=== PATIENT | male | born 1985 | race Caucasian/White ===

== ENCOUNTER 2017-05-20 18:26 | Emergency (ER) | payer SELFPAY ==
[2017-05-20 18:32] VITALS: TEMP 98.4
[2017-05-20] MEDS ORDERED: CHLORDIAZEPOXIDE 25MG PREPK#6 BTL TAKEHOME ONE ×2 (18:36→18:42)
[2017-05-20] MEDS ORDERED: LORazepam 1 MG TAB ONE (18:36)
[2017-05-20] MEDS ORDERED: LORazepam 1 MG TAB PO ONE (18:37)
[2017-05-20] MEDS ORDERED: NS 1,000 ML IV ONE (18:40)
[2017-05-20] MEDS ORDERED: LORazepam 2 MG/ML INJ IVP ONE (18:40)
[2017-05-20] MEDS ORDERED: LORazepam 2 MG/ML INJ ONE (18:40)
--- NOTE | 2017-05-20 19:04 | EDPHY ---
H & P Time Seen by Provider: 05/20/17 18:33 HPI/ROS: CHIEF COMPLAINT: Alcohol withdrawal HISTORY OF PRESENT ILLNESS: 32-year-old male presents to the emergency department by private vehicle with acute alcohol withdrawal. The patient has been drinking heavily over last several weeks. His last drink of alcohol was not o'clock this morning. He went to the [facility] on his own and then this evening around 5:00 p.m. he was beginning to feel very tremulous and shaky. The staff at the [facility] sent him to the emergency department for Librium and evaluation. Patient has no pain in his chest. He has no abdominal pain or reports of vomiting. He has had alcohol withdrawal related seizure in the past. He occasionally smokes marijuana. Denies any other substance abuse. He is not suicidal homicidal. He feels nauseous although no vomiting. REVIEW OF SYSTEMS: Constitutional: No fever, no chills. Eyes: No double or blurry vision. ENT: No sore throat. Respiratory: No cough, no shortness of breath. Cardiac: No chest pain. Gastrointestinal: No abdominal pain, vomiting or diarrhea. Genitourinary: No dysuria. Musculoskeletal: No neck or back pain. Skin: No rashes. Neurological: No headache. Past Medical/Surgical History: Alcoholism Social History: Homeless from [place] Smoking Status: Current every day smoker Physical Exam: General Appearance: Alert, moderate distress. Tremulous. Eyes: Pupils equal and round. Extraocular motions are all intact. ENT: Mouth: Mucous membranes appears dry Respiratory: No wheezing, rhonchi, or rales, lungs are clear to auscultation. Cardiovascular: Regular rate and rhythm. Gastrointestinal: Abdomen is soft and nontender, no masses, no rebound or guarding, bowel sounds normal. Neurological: Alert and oriented x 3, cranial nerves II through XII grossly intact Skin: Warm and dry, no rashes. Musculoskeletal: Nontender to palpate along the cervical, thoracic or lumbar spine. Neck is supple. Extremities: Full range of motion and no peripheral edema. Psychiatric: Patient is oriented X 3, there is no agitation. Constitutional: Initial Vital Signs Temperature (C) 36.9 C 05/20/17 18:29 Heart Rate 103 H 05/20/17 18:29 Respiratory Rate 20 05/20/17 18:29 Blood Pressure 154/94 H 05/20/17 18:29 O2 Sat (%) 97 05/20/17 18:29 O2 Delivery Mode Room Air Allergies/Adverse Reactions: No Known Allergies Allergy (Unverified 05/20/17 18:29) Home Medications: Medication Instructions Recorded NK [No Known Home Meds] 05/20/17 Medical Decision Making ED Course/Re-evaluation: 32-year-old male presents to the emergency department with acute alcohol withdrawal. The patient is tremulous. He is tachycardic with a heart rate of 115. He had an IV established and was given IV normal saline as well as 2 mg of Ativan IV. When he is feeling better and no longer tremulous, he will be discharged to the [facility] with a take-home pack of Librium. Patient was re-evaluated and is feeling much better. He is no longer tremulous. Heart rate is 95. He feels comfortable being discharged to the [facility]. Differential Diagnosis: Including but not limited to alcohol withdrawal, delirium, dehydration, electrolyte abnormality - Data Points Medications Given: Discontinued Medications Chlordiazepoxide (Librium 25 Mg Prepack#6) 1 btl TAKEHOME EDNOW ONE Stop: 05/20/17 18:43 Last Admin: 05/20/17 18:49 Dose: 1 btl Sodium Chloride (Ns) 1,000 mls @ 0 mls/hr IV ONCE ONE PRN Reason: Wide Open Stop: 05/20/17 18:41 Last Admin: 05/20/17 18:46 Dose: 1,000 mls Lorazepam (Ativan) 2 mg PO EDNOW ONE Stop: 05/20/17 18:38 Last Admin: 05/20/17 19:24 Dose: Not Given Lorazepam (Ativan Injection) 2 mg IVP EDNOW ONE Stop: 05/20/17 18:41 Last Admin: 05/20/17 18:45 Dose: 2 mg Departure - Departure Disposition: Home, Routine, Self-Care Clinical Impression: Alcohol withdrawal Qualifiers: Complication of substance-induced condition: uncomplicated Qualified Code(s): F10.230 - Alcohol dependence with withdrawal, uncomplicated Condition: Good Instructions: Alcohol Withdrawal (ED) Additional Instructions: Go directly to the [facility]. Your given a take-home pack of Librium to take with you. Given this to the staff when you arrive. Referrals: [facility] [Outside] - As per Instructions
[2017-05-20 19:20] VITALS: RESP 19
[2017-05-20 19:30] VITALS: BP 130/86; PULSE 91; O2SAT 94
== END 2017-05-20 19:45 | disposition home or self-care (01) ==
DX: F10.230 Alcohol dependence with withdrawal, uncomplicated (principal); F17.200 Nicotine dependence, unspecified, uncomplicated
CPT/HCPCS: 96374; J2060

== ENCOUNTER 2017-06-21 03:25 | Inpatient (IN) | payer MEDICAID ==
[2017-06-21] MEDS ORDERED: NS 1,000 ML IV ONE ×3 (03:29→05:57)
[2017-06-21] MEDS ORDERED: IPRATROPIUM/ALBUTEROL 3 ML DEYVIAL IH ONE (03:30)
--- NOTE | 2017-06-21 03:33 | EDPHY ---
H & P HPI/ROS: HPI CHIEF COMPLAINT: Shortness of breath, with white yellow sputum HISTORY OF PRESENT ILLNESS: Patient is a 32-year-old male, homeless, residing at a local homeless snf he reports to me for the past 2 weeks he has been worsening shortness of breath with cough with productive sputum white and yellow. The cough got worse tonight. Patient states that when he takes deep breath in he has left-sided pleuritic pain in his left lung. Denies trauma. Denies vomiting or diarrhea. Does report he was drinking alcohol this evening last drink at 8:30 p.m.. Denies diarrhea. Denies fever. Past Medical History: History of alcoholism daily alcohol use up to 24 beers, tobacco abuse. "IA in [place]" denies having stents. Past Surgical History: No surgical history Social History: Homeless, daily alcohol use, tobacco abuse. Family History: Noncontributory ROS REVIEW OF SYSTEMS: A comprehensive 10 point review of systems is otherwise negative aside from elements mentioned in the history of present illness. Exam Constitutional triage nursing summary reviewed, vital signs reviewed, awake/ alert. Vital signs noted oxygen saturation 88% on room air, tachycardic to 110 Eyes normal conjunctivae and sclera, EOMI, PERRLA. HENT normal inspection, atraumatic, moist mucus membranes, no epistaxis, neck supple/ no meningismus, no raccoon eyes. Respiratory decreased breath sounds bilaterally, wheezing throughout lung melvin, crackles at the left base. Cardiovascular tachycardic, regular rhythm, no murmur, no edema, distal pulses normal. Gastrointestinal soft, non-tender, no rebound, no guarding, normal bowel sounds, no distension, no pulsatile mass. Genitourinary no CVA tenderness. Musculoskeletal no midline vertebral tenderness, full range of motion, no calf swelling, no tenderness of extremities, no meningismus, good pulses, neurovascularly intact. Skin pink, warm, & dry, no rash, skin atraumatic. Neurologic awake, alert and oriented x 3, AAOx3, moves all 4 extremities equally, motor intact, sensory intact, CN II-XII intact, normal cerebellar, normal vision, normal speech. Psychiatric normal mood/affect. Heme/Lymph/Immune no lymphadenopathy. Differential Diagnosis: Includes but is not limited to in a particular order pneumonia, pulmonary embolism, pneumothorax, CHF, bronchitis, reactive airway disease Medical Decision Making: Plan for this patient IV establishment IV fluid bolus full quality assurance monitor, supplemental oxygen, DuoNeb breathing treatment, chest x- ray two view to rule pneumonia, blood work, and re-evaluate. Re-evaluation: ED x-ray chest two view shows haziness in the right lower lobe, additionally haziness on the left heart border concerning for pneumonia. Image interpreted by myself. CT chest angiogram no pulmonary embolism visualized. This does show a left lower lobe pneumonia. This patient be admitted to the hospitalist service for left lower lobe pneumonia, hypoxia and alcohol intoxication Patient blood cultures been pulled. Lactic acid is been pulled. IV Rocephin and Zithromax given. EKG interpretation by me on record in [facility] system. Impression time of EKG 3:52 a.m., sinus tachycardia rate of 100. LVH present. Early Repol pattern present. Spoke with the hospitalist service [id number]: Agrees to admit, Dr. Sun. Reason for admission tachycardia, hypoxia, acute alcohol intoxication and left lower lobe pneumonia. Source: Patient, EMS - Medical/Surgical History Hx Asthma: No Hx Chronic Respiratory Disease: No Hx Diabetes: No Hx Cardiac Disease: No Hx Renal Disease: No Hx Cirrhosis: No Hx Alcoholism: Yes Hx HIV/AIDS: No Hx Splenectomy or Spleen Trauma: No Other PMH: etoh - Social History Smoking Status: Current every day smoker Constitutional: Initial Vital Signs Temperature (C) 37.6 C 06/21/17 03:28 Heart Rate 101 H 06/21/17 03:28 Respiratory Rate 18 06/21/17 03:28 Blood Pressure 135/106 H 06/21/17 03:28 O2 Sat (%) 95 06/21/17 03:28 O2 Delivery Mode Nasal Cannula O2 (L/minute) 3 Allergies/Adverse Reactions: No Known Allergies Allergy (Unverified 05/20/17 18:29) Home Medications: Medication Instructions Recorded NK [No Known Home Meds] 05/20/17 Medical Decision Making - Data Points Laboratory Results: Laboratory Results 06/21/17 03:30 06/21/17 03:30 Medications Given: Chlordiazepoxide HCl (Librium) 50 mg PO TID JOSE E Stop: 12/18/17 15:59 Last Admin: 06/21/17 21:08 Dose: 50 mg Folic Acid (Folic Acid) 1 mg PO DAILY JOSE E Stop: 12/18/17 08:59 Last Admin: 06/21/17 08:07 Dose: 1 mg Thiamine HCl 500 mg/ Sodium (Chloride) 255 mls @ 255 mls/hr IV DAILY JOSE E Stop: 06/24/17 08:59 Last Admin: 06/21/17 08:12 Dose: 255 mls Potassium Chloride/Dextrose/Sod Cl (D5w 1/2 Ns W/ 20 Kcl/L) 1,000 mls @ 125 mls /hr IV CONT JOSE E Stop: 12/18/17 10:59 Last Admin: 06/21/17 22:05 Dose: 1,000 mls Lorazepam (Ativan Injection) 0 mg IVP Q1H PRN; Protocol PRN Reason: Alcohol Withdrawal w/IV access Stop: 12/18/17 05:43 Last Admin: 06/21/17 22:05 Dose: 2 mg Multivitamins (Tab-A-Fritz) 1 each PO DAILY JOSE E Stop: 12/18/17 08:59 Last Admin: 06/21/17 08:07 Dose: 1 each Discontinued Medications Albuterol/Ipratropium (Duoneb) 3 ml IH EDNOW ONE Stop: 06/21/17 03:31 Last Admin: 06/21/17 03:45 Dose: 3 ml Chlordiazepoxide HCl (Librium) 25 mg PO TID PRN PRN Reason: Anxiety, Able to Take PO Stop: 12/18/17 05:42 Last Admin: 06/21/17 08:07 Dose: 25 mg Chlordiazepoxide HCl (Librium) 25 mg PO ONCE ONE Stop: 06/21/17 10:46 Last Admin: 06/21/17 11:03 Dose: 25 mg Diazepam (Valium) 5 mg IVP ONCE ONE Stop: 06/21/17 14:09 Last Admin: 06/21/17 14:10 Dose: 5 mg Diazepam (Valium) 5 mg IVP ONCE ONE Stop: 06/21/17 14:35 Last Admin: 06/21/17 14:56 Dose: 5 mg Sodium Chloride (Ns) 1,000 mls @ 0 mls/hr IV EDNOW ONE; Wide Open PRN Reason: Protocol Stop: 06/21/17 03:30 Last Admin: 06/21/17 03:44 Dose: 1,000 mls Azithromycin 500 mg/ Dextrose 255 mls @ 255 mls/hr IV EDNOW ONE PRN Reason: Protocol Stop: 06/21/17 04:58 Last Admin: 06/21/17 04:53 Dose: 255 mls Ceftriaxone Sodium 1 gm/ (Sterile Water) 10 mls @ 150 mls/hr IV EDNOW ONE PRN Reason: Protocol Stop: 06/21/17 04:02 Last Admin: 06/21/17 04:52 Dose: 10 mls Sodium Chloride (Ns) 1,000 mls @ 0 mls/hr IV ONCE ONE PRN Reason: Wide Open Stop: 06/21/17 04:00 Last Admin: 06/21/17 04:08 Dose: 1,000 mls Sodium Chloride (Ns) 1,000 mls @ 0 mls/hr IV ONCE ONE PRN Reason: Wide Open Stop: 06/21/17 05:58 Last Admin: 06/21/17 06:59 Dose: 1,000 mls Magnesium Sulfate (Magnesium Sulf 2 Gm (Premix)) 50 mls @ 50 mls/hr IV ONCE ONE Stop: 06/21/17 11:59 Last Admin: 06/21/17 11:02 Dose: 50 mls Lorazepam (Ativan Injection) 1 mg IVP EDNOW ONE Stop: 06/21/17 05:37 Last Admin: 06/21/17 06:59 Dose: Not Given Lorazepam (Ativan Injection) 2 mg IVP ONCE ONE Stop: 06/21/17 05:43 Last Admin: 06/21/17 05:44 Dose: 2 mg Lorazepam (Ativan Injection) 2 mg IVP ONCE ONE Stop: 06/21/17 11:59 Last Admin: 06/21/17 12:05 Dose: 2 mg Lorazepam (Ativan Injection) 2 mg IVP ONCE ONE Stop: 06/21/17 13:46 Last Admin: 06/21/17 13:30 Dose: 2 mg Departure - Departure Disposition: [facility] Clinical Impression: Hypoxia Pneumonia Qualifiers: Pneumonia type: due to unspecified organism Laterality: left Lung location: lower lobe of lung Qualified Code(s): J18.1 - Lobar pneumonia, unspecified organism Alcohol intoxication Qualifiers: Complication of substance-induced condition: uncomplicated Qualified Code(s): F10.920 - Alcohol use, unspecified with intoxication, uncomplicated Alcohol withdrawal Qualifiers: Complication of substance-induced condition: uncomplicated Qualified Code(s): F10.230 - Alcohol dependence with withdrawal, uncomplicated Condition: Fair
[2017-06-21 03:43] LABS: PLATELET COUNT 85 10^3/uL (150-400)
[2017-06-21 03:52] LABS: INR 0.87 (0.83-1.16)
--- NOTE | 2017-06-21 03:54 | CPEKG ---
Heart Rate: 100 RR Interval: 600 P-R Interval: 136 QRSD Interval: 96 QT Interval: 344 QTC Interval: 444 P Marshall: 62 QRS Marshall: 73 T Wave Marshall: 4 EKG Severity - ABNORMAL ECG - EKG Impression: SINUS TACHYCARDIA EKG Impression: PROBABLE LEFT VENTRICULAR HYPERTROPHY EKG Impression: ST ELEV, PROBABLE NORMAL EARLY REPOL PATTERN Electronically Signed By: John Flores 21-Jun-2017 07:56:38
[2017-06-21 03:55] LABS: CREATINE KINASE 359 IU/L (0-224)
[2017-06-21] MEDS ORDERED: cefTRIAXone 1 GM in STERILE WATER INJ 10 ML IV ONE (03:59)
[2017-06-21] MEDS ORDERED: AZITHROMYCIN IV 500 MG in D5W 250 ML IV ONE (03:59)
[2017-06-21] MEDS ORDERED: IOPAMIDOL (ISOVUE 370) 100 ML BTL IV ONE (04:28)
[2017-06-21] MEDS ORDERED: ACETAMINOPHEN 325 MG TAB PO PRN (05:09)
[2017-06-21] MEDS ORDERED: ONDANSETRON 4 MG/2 ML VIAL IVP PRN (05:09)
[2017-06-21] MEDS ORDERED: ONDANSETRON DISINTEGRATING 4 MG TAB PO PRN (05:09)
[2017-06-21] MEDS ORDERED: ALBUTEROL 3 ML DEYVIAL IH PRN (05:09)
[2017-06-21] MEDS ORDERED: LORazepam 2 MG/ML INJ IVP ONE ×4 (05:36→13:45)
[2017-06-21] MEDS ORDERED: chlordiazePOXIDE 25 MG CAP PO PRN (05:43)
--- NOTE | 2017-06-21 05:51 | PDGENHP ---
History and Physical - Chief Complaint Chest pain - History of Present Illness 32 yo M w/ hx of heavy ETOH abuse presents with cough, shortness of breath, and chest pain. Patient first noticed a cough about a month ago. This persisted until last night when he developed left sided pleuritic chest pain, fever, chills, and worsening shortness of breath. Work-up notable for leukocytosis and CTA c/w LLL pneumonia. He drinks 2 liters of vodka and 2-3 40 oz malt liquors daily. He has a history of severe withdrawal with prior ETOH w/d seizures. His last drink was at 9 PM yesterday evening and he is already showing signs of significant ETOH withdrawal despite BAL of 385 on arrival in the ED. History Information - Allergies/Home Medication List Allergies/Adverse Reactions: No Known Allergies Allergy (Unverified 05/20/17 18:29) Home Medications: NK [No Known Home Meds] 05/20/17 [Last Taken Unknown] I have personally reviewed and updated: family history, medical history - Past Medical History Additional medical history: ETOH abuse w/ hx of w/d and ETOH w/d seizures - Surgical History Reports: no pertinent surgical hx - Family History Positive for: cancer, CAD Additional family history: Cirrhosis - Social History Smoking Status: Current every day smoker Alcohol Use: Heavy Review of Systems Review of Systems: ROS: 10pt was reviewed & negative except for what was stated in HPI & below Physical Exam Physical Exam: Temp Pulse Resp BP Pulse Ox 37.6 C 108 H 18 132/84 H 95 06/21/17 03:28 06/21/17 05:42 06/21/17 05:42 06/21/17 05:42 06/21/17 05:42 O2 (L/minute) 3 Constitutional: uncomfortable, other (Tremulous, anxious) Eyes: PERRL, EOMI Ears, Nose, Mouth, Throat: moist mucous membranes, no oral mucosal ulcers Cardiovascular: no murmur, rub, or gallop, tachycardia Respiratory: reduced air movement, inspiratory crackles (LLL), other ( Significant splinting) Gastrointestinal: normoactive bowel sounds, soft, non-tender abdomen Skin: warm, normal color Musculoskeletal: full muscle strength, no muscle tenderness Neurologic: AAOx3, CN II-XII Intact Psychiatric: interacting appropriately, anxious Lab Data & Imaging Review 06/21/17 03:30 06/21/17 03:30 WBC 12.26 10^3/uL (3.80-9.50) H 06/21/17 03:30 RBC 4.94 10^6/uL (4.40-6.38) 06/21/17 03:30 Hgb 14.9 g/dL (13.7-17.5) 06/21/17 03:30 Hct 43.0 % (40.0-51.0) 06/21/17 03:30 MCV 87.0 fL (81.5-99.8) 06/21/17 03:30 MCH 30.2 pg (27.9-34.1) 06/21/17 03:30 MCHC 34.7 g/dL (32.4-36.7) 06/21/17 03:30 RDW 18.4 % (11.5-15.2) H 06/21/17 03:30 Plt Count 85 10^3/uL (150-400) L 06/21/17 03:30 MPV 9.5 fL (8.7-11.7) 06/21/17 03:30 Neut % (Auto) 60.4 % (39.3-74.2) 06/21/17 03:30 Lymph % (Auto) 33.7 % (15.0-45.0) 06/21/17 03:30 Dyer % (Auto) 2.9 % (4.5-13.0) L 06/21/17 03:30 Eos % (Auto) 1.9 % (0.6-7.6) 06/21/17 03:30 Baso % (Auto) 0.7 % (0.3-1.7) 06/21/17 03:30 Nucleat RBC Rel Count 0.0 % (0.0-0.2) 06/21/17 03:30 Absolute Neuts (auto) 7.41 10^3/uL (1.70-6.50) H 06/21/17 03:30 Absolute Lymphs (auto) 4.13 10^3/uL (1.00-3.00) H 06/21/17 03:30 Absolute Monos (auto) 0.35 10^3/uL (0.30-0.80) 06/21/17 03:30 Absolute Eos (auto) 0.23 10^3/uL (0.03-0.40) 06/21/17 03:30 Absolute Basos (auto) 0.09 10^3/uL (0.02-0.10) 06/21/17 03:30 Absolute Nucleated RBC 0.00 10^3/uL (0-0.01) 06/21/17 03:30 Immature Gran % 0.4 % (0.0-1.1) 06/21/17 03:30 Immature Gran # 0.05 10^3/uL (0.00-0.10) 06/21/17 03:30 PT 12.0 SEC (12.0-15.0) 06/21/17 03:30 INR 0.87 (0.83-1.16) 06/21/17 03:30 APTT 22.2 SEC (23.0-38.0) L 06/21/17 03:30 D-Dimer 2.29 ug/mLFEU (0.00-0.50) H 06/21/17 03:30 VBG Lactic Acid 2.0 mmol/L (0.7-2.1) 06/21/17 05:16 Sodium 147 mEq/L (135-145) H 06/21/17 03:30 Potassium 4.0 mEq/L (3.5-5.2) 06/21/17 03:30 Chloride 104 mEq/L (97-110) 06/21/17 03:30 Carbon Dioxide 21 mEq/l (22-31) L 06/21/17 03:30 Anion Gap 22 mEq/L (8-16) H 06/21/17 03:30 BUN 10 mg/dL (7-23) 06/21/17 03:30 Creatinine 0.6 mg/dL (0.7-1.3) L 06/21/17 03:30 Estimated GFR > 60 06/21/17 03:30 Glucose 123 mg/dL (70-100) H 06/21/17 03:30 Calcium 8.9 mg/dL (8.5-10.4) 06/21/17 03:30 Magnesium 1.5 mg/dL (1.6-2.3) L 06/21/17 03:30 Total Bilirubin 0.4 mg/dL (0.1-1.4) 06/21/17 03:30 Conjugated Bilirubin 0.3 mg/dL (0.0-0.5) 06/21/17 03:30 Unconjugated Bilirubin 0.1 mg/dL (0.0-1.1) 06/21/17 03:30 AST 237 IU/L (17-59) H 06/21/17 03:30 ALT 120 IU/L (21-72) H 06/21/17 03:30 Alkaline Phosphatase 128 IU/L (38-126) H 06/21/17 03:30 Creatine Kinase 359 IU/L (0-224) H 06/21/17 03:30 CK-MB (CK-2) Fraction 3.62 ng/mL (0.00-3.19) H 06/21/17 03:30 CK-MB (CK-2) % 1.0 % (0.0-4.0) 06/21/17 03:30 Creatine Kinase Interp NEGATIVE (NEGATIVE) 06/21/17 03:30 Troponin I < 0.012 ng/mL (0.000-0.034) 06/21/17 03:30 NT-Pro-B Natriuret Pep 21 pg/mL (0-125) 06/21/17 03:30 Total Protein 8.4 g/dL (6.3-8.2) H 06/21/17 03:30 Albumin 4.8 g/dL (3.5-5.0) 06/21/17 03:30 Lipase 211 IU/L (23-300) 06/21/17 03:30 Urine Opiates Screen NEGATIVE (NEGATIVE) 06/21/17 04:48 Urine Barbiturates NEGATIVE (NEGATIVE) 06/21/17 04:48 Ur Phencyclidine Scrn NEGATIVE (NEGATIVE) 06/21/17 04:48 Ur Amphetamine Screen NEGATIVE (NEGATIVE) 06/21/17 04:48 U Benzodiazepines Scrn NEGATIVE (NEGATIVE) 06/21/17 04:48 Urine Cocaine Screen NEGATIVE (NEGATIVE) 06/21/17 04:48 U Marijuana (THC) Screen NON-NEGATIVE (NEGATIVE) H 06/21/17 04:48 Ethyl Alcohol 385 mg/dL (0-10) H 06/21/17 03:30 Imaging Review: CTA Chest Preliminary: Signs and Symptoms: ^Shortness of breath, pleuritic pain, positive D-dimer Technique: Routine axial imaging of the chest was performed. Findings: No PE. Aorta nl LLL pneumonia ? fatty liver Called to ER @ 0505 hrs Visualized and Interpreted EKG results: Yes EKG Interpretation: Positive for: normal sinsus rhythm, other (Sinus tach, early repol anterior leads) Assessment & Plan Assessment: 32 yo M w/ hx of heavy ETOH abuse presents with pneumonia and ETOH w/d. Plan: 1. Sepsis 2/2 LLL Pneumonia - 2/4 SIRS (WBC, HR) present on admission. Cough present for 1 month and then 1 day of pleuritic chest pain, fever, chills, and worsening SOB. CTA chest negative for PE and pneumothorax. Possible this is related to aspiration in setting of heavy ETOH use. - CTX/Azithro for CAP coverage, if worsening would add anaerobic coverage - Blood cultures ordered - S/p 2L IVF in ED, will give additional liter now 2. ETOH abuse w/ acute withdrawal - Patient drinks 2 L vodka and 2-3 40 oz malt liquors daily. His last drink was at 9 PM the evening prior to admission and he is already displaying signs of significant withdrawal despite BAL of 350 on arrival. He reports various prior episodes of severe withdrawal including ETOH w /d seizures. - Ativan 2 mg IV + Librium 25 mg PO now, continue Librium scheduled TID - Admit to ICU for close monitoring and ICU level CIWA protocol - Seizure precautions - Thiamine, folate, MVI - Case management consult placed 3. Abnormal LFTs - Suspect mild alcoholic hepatitis. DF negligible so no indication for steroids. Trend LFTs. 4. Thrombocytopenia - Plts 85 on admission. This is most likely due to direct toxic effect of ETOH on bone marrow as patient does not display clear evidence of cirrhosis at this time; may also have some contribution from sepsis. Would avoid blood thinners as able. Diet - Regular Code - Full Ppx - SCDs Dispo - Admit to ICU under observation status for now
[2017-06-21] MEDS: LORazepam 2 MG/ML INJ IVP PRN ×16 (06:58→23:06)
[2017-06-21] MEDS: FOLIC ACID 1 MG TAB PO SCH (08:07)
[2017-06-21] MEDS: MULTIVITAMINS 1 EACH TAB PO SCH (08:07)
[2017-06-21] MEDS: THIAMINE HCL 500 MG in NS 250 ML IV SCH (08:12)
[2017-06-21] MEDS ORDERED: chlordiazePOXIDE 25 MG CAP PO ONE (10:45)
[2017-06-21] MEDS ORDERED: MAGNESIUM SULF 2 GM/WATER 50 ML IV ONE (11:00)
[2017-06-21] MEDS: D5W 1/2 NS W/ 20 KCl/L 1,000 ML IV SCH ×2 (11:02→22:05)
--- NOTE | 2017-06-21 12:26 | ASMTCASEMG ---
Living Arrangements What is your living Answers: Alone arrangement? Who do you live with? Type Of Residence What kind of residence do Answers: Homeless you live in? Discharge Plan Comments Coordination Status Comments Notes: Pt is a 32 y/o man admitted for chest pain. Pt is withdrawing from ETOH. Pt has a hx of ETOH seizures. CM attempted to meet w/ pt for ETOH education but pt was unable to rouse. Pt will most likely d/c independent when medically stable. CM available for d/c needs. Plan: Independent Date Signed: 06/21/2017 12:26 PM Electronically Signed By:YELENA Branch
--- NOTE | 2017-06-21 13:57 | HOSPPROG ---
Hospitalist Progress Note Assessment/Plan: Patient seen and examined Continue aggressive alcohol withdrawal treatment and antibiotics for pneumonia Objective: Vital Signs Temp Pulse Resp BP Pulse Ox 38.2 C 99 19 111/64 96 06/21/17 12:00 06/21/17 13:00 06/21/17 13:00 06/21/17 13:00 06/21/17 13:00 06/20/17 06/21/17 06/22/17 05:59 05:59 05:59 Intake Total 2250 Output Total 650 Balance 1600 PT 12.0 SEC (12.0-15.0) 06/21/17 03:30 INR 0.87 (0.83-1.16) 06/21/17 03:30 ICD10 Worksheet Patient Problems: Problems Problem Status Onset Alcohol intoxication Acute Hypoxia Acute Pneumonia Acute
[2017-06-21] MEDS ORDERED: DIAZEPAM 10 MG/2 ML SYR IVP ONE ×2 (14:08→14:34)
[2017-06-21] MEDS ORDERED: DIAZEPAM 10 MG/2 ML SYR ONE (14:10)
--- NOTE | 2017-06-21 14:42 | GCON ---
[f rep st] CONSULTATION DATE OF CONSULTATION: 06/21/2017 REFERRING PHYSICIAN: Willy Bernardo MD PULMONARY/CRITICAL CARE CONSULTATION REASON FOR REFERRAL: Evaluation and management of pneumonia and alcohol withdrawal. HISTORY: The patient is a 32-year-old male with a history of heavy alcohol use , who presented to the hospital. He noted a cough about a month ago. This persisted and then became a bit worse last night with the onset of some left pleuritic chest pain, fevers, and chills as well as worsening shortness of breath. He was admitted to the hospital for probable pneumonia following evaluation including a CT scan. At the time of admission, he was having signs of alcohol withdrawal despite having a BAL of 385 on arrival in the emergency department. Typically drinks several liters of vodka and a couple of malt liquors daily. He has had a history of seizures with prior withdrawal attempts. PAST MEDICAL HISTORY: Alcohol abuse with history of alcohol withdrawal seizures. MEDICATIONS: At the time of admission, none. ALLERGIES: None. SOCIAL HISTORY: The patient has a history of heavy daily alcohol use, as well as daily smoking. FAMILY HISTORY: Positive for coronary artery disease. REVIEW OF SYSTEMS: A 10-point review of systems adds nothing to the history of present illness. PHYSICAL EXAMINATION: GENERAL: The patient is awake and agitated with diaphoresis. He is complaining of significant tremors and agitation. VITAL SIGNS : His blood pressure is 121/74 with a heart rate of 110. He is afebrile. Oxygen saturations are 97% on 3 L. HEENT: Normocephalic and atraumatic. No icterus. NECK: No adenopathy. Trachea is midline. CHEST: Clear to auscultation. CARDIAC: Regular tachycardia without murmur. ABDOMEN: Soft, nontender. Bowel sounds are present. EXTREMITIES: No clubbing, cyanosis, or edema. NEURO: The patient is a bit sedated but still arousable and able to answer questions. He has normal motor strength in all extremities but has a very prominent coarse tremor in all extremities. LABORATORY: White blood count is 12.3 with a hemoglobin of 14.9. A sodium is 147, a creatinine is 0.6, and anion gap is 22 with a carbon dioxide level of 21. A bilirubin is 0.4, and AST is 237 with an ALT of 120. Alcohol level is 385 , and a tox screen was non-negative for THC at admission. A CT chest x-ray shows a possible retrocardiac infiltrate. A CT scan shows small area of consolidation in the left base and no pulmonary emboli. The images were reviewed by me. ASSESSMENT: 1. Left lower lobe pneumonia. This is a fairly small area of dense consolidation. Initial venous lactate was 2.0. The patient had a mild anion gap metabolic acidosis. Bood cultures are pending. He is being empirically treated with ceftriaxone and azithromycin. This should be adequate coverage. 2. Alcohol withdrawal. The patient is having severe alcohol withdrawal despite frequent IV Ativan as well as low-dose scheduled Librium. He has a history of seizures in the past but has not had any seizures with this episode of withdrawal. RECOMMENDATIONS: Continue current empiric antibiotics and IV fluids. Will increase the Librium to 50 t.i.d. Additionally, I will give him a dose of 5 mg of IV Valium and repeat that, which will have long-lasting effects and hopefully start to allow him to go for longer periods of time in between his Ativan dosing, which is currently hourly but may also increase the scheduled dose of Librium further if he continues to need frequent Ativan. /[id number]/MODL MTDD
--- NOTE | 2017-06-21 14:44 | PDMN ---
Medical Necessity Medical necessity: Pt meets INPT criteria per MD as of 06/21/17; est. LOS >2 MN for eval/tx of sepsis 2/2 LLL pneumonia, ETOH abuse with acute withdrawal per MD.
[2017-06-21] MEDS: chlordiazePOXIDE 25 MG CAP PO SCH ×2 (15:44→21:08)
[2017-06-22] MEDS: LORazepam 2 MG/ML INJ IVP PRN ×6 (00:31→11:13)
[2017-06-22] MEDS: D5W 1/2 NS W/ 20 KCl/L 1,000 ML IV SCH (05:54)
[2017-06-22] MEDS: LORazepam 1 MG TAB PO PRN ×2 (08:10→14:32)
[2017-06-22] MEDS: FOLIC ACID 1 MG TAB PO SCH (08:11)
[2017-06-22] MEDS: chlordiazePOXIDE 25 MG CAP PO SCH (08:11)
[2017-06-22] MEDS: MULTIVITAMINS 1 EACH TAB PO SCH (08:11)
[2017-06-22] MEDS: THIAMINE HCL 500 MG in NS 250 ML IV SCH (08:17)
[2017-06-22] MEDS ORDERED: cefTRIAXone 1 GM in STERILE WATER INJ 10 ML IV SCH (09:00)
[2017-06-22] MEDS ORDERED: AZITHROMYCIN 250 MG TAB PO SCH ×2 (09:00)
--- NOTE | 2017-06-22 11:32 | PDINTPN ---
[facility] Hand Progress Note Assessment/Plan: Assessment: CAP: Left lower lobe. On CTX/Kelly, no supplemental oxygen. EtOH withdrawal: Continues to have tremors and diaphoresis, frequent IV Ativan in addition to scheduled Librium Plan: Continue antibiotics. Increase Librium to QID, add additional Valium IV for longer half-life. 06/22/17 11:29 Subjective: Feels a bit better, but still quite tremulous. Cough improved a bit. Objective: Vital Signs Temp Pulse Resp BP Pulse Ox 36.8 C 104 H 23 H 128/86 H 96 06/22/17 08:00 06/22/17 11:00 06/22/17 11:00 06/22/17 11:00 06/22/17 11:00 Laboratory Results 06/22/17 06:00 06/22/17 06:00 06/21/17 06/22/17 06/23/17 05:59 05:59 05:59 Intake Total 3892 250 Output Total 550 550 Balance 3342 -300 PT 12.0 SEC (12.0-15.0) 06/21/17 03:30 INR 0.87 (0.83-1.16) 06/21/17 03:30 Physical Exam - Physical Exam General Appearance: alert, no apparent distress EENT: normal ENT inspection Neck: normal inspection Respiratory: crackles (left base) Cardiac/Chest: regular rate, rhythm, No edema Abdomen: normal bowel sounds, non-tender Skin: normal color, diaphoresis Extremities: normal inspection Neuro/Psych: alert, other (tremor) ICD10 Worksheet Patient Problems: Problems Problem Status Onset Alcohol intoxication Acute Alcohol withdrawal Acute Hypoxia Acute Pneumonia Acute
[2017-06-22] MEDS ORDERED: chlordiazePOXIDE 25 MG CAP PO ONE (11:33)
[2017-06-22 11:42] VITALS: TEMP 98.6
[2017-06-22] MEDS ORDERED: chlordiazePOXIDE 25 MG CAP PO SCH (12:00)
[2017-06-22 14:19] VITALS: BP 123/80; PULSE 95; RESP 18; O2SAT 95
[2017-06-22] MEDS ORDERED: NICOTINE POLACRILEX 2 MG GUM B PRN (14:48)
[2017-06-22] MEDS ORDERED: DIAZEPAM 10 MG/2 ML SYR IVP ONE (14:49)
[2017-06-22] MEDS ORDERED: NICOTINE 21 MG/24 HR PATCH TD SCH (15:00)
--- NOTE | 2017-06-22 15:00 | HOSPPROG ---
Hospitalist Progress Note Assessment/Plan: * alcohol withdrawal * On scheduled Librium but getting significant amounts of Ativan and Valium * Continue to watch in the ICU on CIWA protocol * Pretty stable currently * left lower lobe pneumonia * Azithromycin and ceftriaxone * thrombocytopenia * Due to alcohol * alcoholic hepatitis Subjective: Tremor seems to be a little bit better. Objective: Vital Signs Temp Pulse Resp BP Pulse Ox 37.0 C 95 18 123/80 H 95 06/22/17 11:40 06/22/17 14:00 06/22/17 14:00 06/22/17 14:00 06/22/17 14:00 Laboratory Results 06/22/17 06:00 06/22/17 06:00 06/21/17 06/22/17 06/23/17 05:59 05:59 05:59 Intake Total 3892 250 Output Total 550 950 Balance 3342 -700 PT 12.0 SEC (12.0-15.0) 06/21/17 03:30 INR 0.87 (0.83-1.16) 06/21/17 03:30 - Physical Exam Constitutional: no apparent distress, appears nourished, not in pain Eyes: anicteric sclera, EOMI Cardiovascular: regular rate and rhythym, no murmur, rub, or gallop Respiratory: no respiratory distress, no rales or rhonchi, clear to auscultation Skin: warm Neurologic: AAOx3, other (Mild tremor) Psychiatric: interacting appropriately, not anxious, not encephalopathic, thought process linear ICD10 Worksheet Patient Problems: Problems Problem Status Onset Alcohol intoxication Acute Alcohol withdrawal Acute Hypoxia Acute Pneumonia Acute
[2017-06-24] MEDS ORDERED: THIAMINE HCL 100 MG TAB PO SCH (05:14)
== END 2017-06-22 16:10 | disposition left against medical advice (07) | DRG 194 ==
LOC: EDUNIT# → INTOOBSV 05:09 → F2N 06:24 → OBSVTOIN 13:56
PROVIDERS: ADMIT Student in an Organized Health Care Education/Training Program; ATTEND Student in an Organized Health Care Education/Training Program
DX: J18.1 Lobar pneumonia, unspecified organism (principal); F10.230 Alcohol dependence with withdrawal, uncomplicated; F10.229 Alcohol dependence with intoxication, unspecified; Z72.0 Tobacco use; Z59.0 Homelessness; Y90.8 Blood alcohol level of 240 mg/100 ml or more
CPT/HCPCS: 80305; 96365; 97161-GP; G0480; J0456; J0696; J2060; J3411; Q9967

== ENCOUNTER 2017-06-30 12:02 | Emergency (ER) | payer MEDICAID ==
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
[2017-06-30 12:12] VITALS: O2SAT 93
[2017-06-30] MEDS ORDERED: LORazepam 1 MG TAB PO ONE (12:39)
[2017-06-30] MEDS ORDERED: CHLORDIAZEPOXIDE 25MG PREPK#6 BTL TAKEHOME ONE ×2 (12:55→12:57)
[2017-06-30 13:36] VITALS: BP 124/94; PULSE 74; RESP 16; TEMP 97.7
== END 2017-06-30 13:39 | disposition home or self-care (01) ==
LOC: EDUNIT#
DX: F10.10 Alcohol abuse, uncomplicated (principal)

== ENCOUNTER 2017-06-30 20:40 | Emergency (ER) | payer MEDICAID ==
[2017-06-30] MEDS ORDERED: NS 1,000 ML IV ONE (21:02)
[2017-06-30] MEDS ORDERED: LORazepam 2 MG/ML INJ IVP ONE ×2 (21:02→23:01)
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
[2017-06-30] MEDS ORDERED: CHLORDIAZEPOXIDE 25MG PREPK#6 BTL TAKEHOME ONE (21:52)
[2017-06-30 23:43] VITALS: BP 135/72; PULSE 88; RESP 16; TEMP 99.5; O2SAT 95
== END 2017-06-30 23:43 | disposition home or self-care (01) ==
DX: S60.222A Contusion of left hand, initial encounter (principal); F10.230 Alcohol dependence with withdrawal, uncomplicated; F17.200 Nicotine dependence, unspecified, uncomplicated; W18.39XD Other fall on same level, subsequent encounter
CPT/HCPCS: 96374; J2060

== ENCOUNTER 2017-08-02 17:45 | Inpatient (IN) | payer MEDICAID ==
[2017-08-02] MEDS ORDERED: NS 1,000 ML IV ONE (18:08)
[2017-08-02] MEDS ORDERED: FAMOTIDINE 20 MG/NACL 50 ML IV ONE (18:08)
--- NOTE | 2017-08-02 18:10 | EDPHY ---
H & P Time Seen by Provider: 08/02/17 17:49 HPI/ROS: CHIEF COMPLAINT: Vomiting blood, black tarry stools HISTORY OF PRESENT ILLNESS: Patient is a 32-year-old male who presents to the emergency department with multiple complaints. The patient is homeless. He drinks alcohol heavily. He states that over the past week he has had bloody emesis. He has also had black colored stools. He denies any significant abdominal pain. He has no chest pain or shortness of breath. He is not lightheaded or dizzy. REVIEW OF SYSTEMS: My complete review of systems is negative except as mentioned in the HPI. Past Medical/Surgical History: Includes alcohol abuse Smoking Status: Current every day smoker Physical Exam: Vitals noted GENERAL: No acute distress, alert. HEENT: Injected conjunctiva, normal pharynx, no signs of dehydration. NECK: No thyromegaly, no lymphadenopathy, supple. RESPIRATORY: Clear to auscultation bilaterally, no rales, rhonchi or wheezing. CVS: Regular rate and rhythm, no rubs, murmurs, or gallops. ABDOMEN: Soft, nontender, nondistended, no organomegaly. Benign BACK: Normal to inspection, no CVA tenderness. SKIN: Normal color, no rash, warm, dry. No pallor. EXTREMITIES: No pedal edema, no calf tenderness, no Homans sign or cords, no joint swelling. NEURO/PSYCH: Alert and oriented, normal mood and affect, normal motor sensory exam. Constitutional: Initial Vital Signs Temperature (C) 36.6 C 08/02/17 18:08 Heart Rate 86 08/02/17 18:08 Respiratory Rate 16 08/02/17 18:08 Blood Pressure 147/98 H 08/02/17 18:08 O2 Sat (%) 93 08/02/17 18:08 O2 Delivery Mode Nasal Cannula O2 (L/minute) 2 Allergies/Adverse Reactions: No Known Allergies Allergy (Verified 08/02/17 18:07) Home Medications: Medication Instructions Recorded NK [No Known Home Meds] 08/02/17 Medical Decision Making ED Course/Re-evaluation: In the emergency department I met EMS on arrival. I took report from the irrigator gravity flow. Per report, vital signs were normal. An IV was placed. Laboratory studies were obtained. The patient was given Pepcid and Protonix. Patient's laboratory studies were notable for a hematocrit of 40. His platelets were low at 43. Patient's coags were notable for slightly low PT. I rechecked the patient while here. He had no bowel movement or emesis in the emergency department I discussed the case with Dr. Bernal. He will admit the patient for further observation for his reported GI bleed as well as low platelets. He requested I contact GI. Prior to being transferred to the floor patient was given Librium 25 mg orally and Ativan 1 mg IV. Differential Diagnosis: My differential includes but is not limited to gastritis, Pastora-Weinstein tear, esophagitis, peptic ulcer disease, GERD, perforation, malignancy, mass, anemia - Data Points Laboratory Results: Laboratory Results 08/02/17 18:00 08/02/17 18:00 08/02/17 08/02/17 08/02/17 18:00 18:00 18:00 WBC 5.46 10^3/uL 10^3/uL (3.80-9.50) RBC 4.58 10^6/uL 10^6/uL (4.40-6.38) Hgb 13.8 g/dL g/dL (13.7-17.5) Hct 40.4 % % (40.0-51.0) MCV 88.2 fL fL (81.5-99.8) MCH 30.1 pg pg (27.9-34.1) MCHC 34.2 g/dL g/dL (32.4-36.7) RDW 17.1 % H % (11.5-15.2) Plt Count 43 10^3/uL L 10^3/uL (150-400) MPV 9.3 fL fL (8.7-11.7) Neut % (Auto) 29.6 % L % (39.3-74.2) Lymph % (Auto) 54.6 % H % (15.0-45.0) [place] % (Auto) 11.4 % % (4.5-13.0) Eos % (Auto) 1.1 % % (0.6-7.6) Baso % (Auto) 2.0 % H % (0.3-1.7) Nucleat RBC Rel Count 0.0 % % (0.0-0.2) Absolute Neuts (auto) 1.62 10^3/uL L 10^3/uL (1.70-6.50) Absolute Lymphs (auto) 2.98 10^3/uL 10^3/uL (1.00-3.00) Absolute Monos (auto) 0.62 10^3/uL 10^3/uL (0.30-0.80) Absolute Eos (auto) 0.06 10^3/uL 10^3/uL (0.03-0.40) Absolute Basos (auto) 0.11 10^3/uL H 10^3/uL (0.02-0.10) Absolute Nucleated RBC 0.00 10^3/uL 10^3/uL (0-0.01) Immature Gran % 1.3 % H % (0.0-1.1) Immature Gran # 0.07 10^3/uL 10^3/uL (0.00-0.10) Platelet Estimate DECREASED L (ADEQ) PT 11.7 SEC L SEC (12.0-15.0) INR 0.84 (0.83-1.16) APTT 26.3 SEC SEC (23.0-38.0) Sodium 147 mEq/L H mEq/L (135-145) Potassium 4.1 mEq/L mEq/L (3.5-5.2) Chloride 105 mEq/L mEq/L (97-110) Carbon Dioxide 26 mEq/l mEq/l (22-31) Anion Gap 16 mEq/L mEq/L (8-16) BUN 11 mg/dL mg/dL (7-23) Creatinine 0.6 mg/dL L mg/dL (0.7-1.3) Estimated GFR > 60 Glucose 112 mg/dL H mg/dL (70-100) Calcium 8.7 mg/dL mg/dL (8.5-10.4) Medications Given: Discontinued Medications Sodium Chloride (Ns) 1,000 mls @ 0 mls/hr IV EDNOW ONE; Wide Open PRN Reason: Protocol Stop: 08/02/17 18:09 Last Admin: 08/02/17 18:27 Dose: 1,000 mls Famotidine/Sodium Chloride (Pepcid 20 Mg (Premix)) 50 mls @ 200 mls/hr IV EDNOW ONE Stop: 08/02/17 18:22 Last Admin: 08/02/17 18:27 Dose: 50 mls Pantoprazole Sodium (Protonix) 40 mg IVP EDNOW ONE Stop: 08/02/17 18:30 Last Admin: 08/02/17 18:30 Dose: 40 mg Departure - Departure Disposition: [facility] Clinical Impression: Thrombocytopenia GI bleed Qualifiers: GI bleed type/associated pathology: gastritis Gastritis type: acute gastritis Qualified Code(s): K29.01 - Acute gastritis with bleeding Condition: Good
[2017-08-02] MEDS ORDERED: PANTOPRAZOLE SODIUM 40 MG VIAL ONE (18:17)
[2017-08-02] MEDS ORDERED: PANTOPRAZOLE SODIUM 40 MG VIAL IVP ONE (18:29)
[2017-08-02 18:31] LABS: PLATELET COUNT 43 10^3/uL (150-400)
[2017-08-02 18:42] LABS: INR 0.84 (0.83-1.16); PROTIME(PATIENT) 11.7 SEC (12.0-15.0)
[2017-08-02] MEDS ORDERED: LORazepam 2 MG/ML INJ IVP ONE (20:20)
[2017-08-02] MEDS ORDERED: chlordiazePOXIDE 25 MG CAP PO ONE (20:20)
[2017-08-02] MEDS ORDERED: ONDANSETRON DISINTEGRATING 4 MG TAB PO PRN (21:24)
[2017-08-02] MEDS ORDERED: ONDANSETRON 4 MG/2 ML VIAL IVP PRN (21:24)
[2017-08-02] MEDS ORDERED: NS 1,000 ML IV SCH (21:30)
[2017-08-02] MEDS: THIAMINE HCL 500 MG in NS 500 ML IV SCH (21:51)
--- NOTE | 2017-08-02 22:03 | GHP ---
[f rep st] HISTORY AND PHYSICAL DATE OF ADMISSION: 08/02/2017 CHIEF COMPLAINT: Possibly throwing up blood. HISTORY OF PRESENT ILLNESS: This is a 32-year-old man, who presents to the ED with a history that is somewhat difficult to ascertain. He tells me that he is able to blow blood out of his nose. He yancy o tells me that he feels a dripping into the back of his throat. This causes him to cough and someti mes throw up. There is sometimes blood in the ear. This has been going on for about 1 week. He als o describes bright red blood per his rectum. He is clear that there is no melena, however. He does not take aspirin or any other blood thinners. He is not taking any NSAIDs. He does drink quite sign ificant amount, he tells me about half a gallon of vodka a day. PAST MEDICAL/SURGICAL HISTORY: MA. He tells me that he was life flighted to a hospital in [place] . MEDICATIONS: Please see medication reconciliation. ALLERGIES: No known drug allergies. SOCIAL HISTORY: He is homeless. He is living in a tent. He drinks alcohol as above. He does smoke cigarettes occasionally, denies any other drugs. FAMILY HISTORY: Father of cancer. His brother of an MA at 46. REVIEW OF SYSTEMS: Notable for occasional abdominal pain. Otherwise, 10-point review of systems is conducted and is negative except per HPI. PHYSICAL EXAM: VITAL SIGNS: Blood pressure is 128/88, heart rate 89, respiration rate 18, saturatin g 94% on 2 L. Temperature is 36.8. GENERAL: Mr. Alfonso is a pleasant man who appears somewhat int oxicated. When I am seeing him, he is answering questions appropriately. HEENT: Normocephalic, atr aumatic. CARDIOVASCULAR: Regular rate and rhythm. No murmurs, rubs, or gallops. PULMONARY: Lungs clear to auscultation bilaterally. ABDOMEN: Soft, nontender, nondistended. SKIN: No rash. : No [place]. NEUROLOGIC: He is alert and oriented x3. He is moving all extremities. PSYCHIATRIC: No rmal mood and affect. EXTREMITIES: Scabbing wounds on his hands and knuckles. They are well healing . LABS: Sodium is 147. Hemoglobin 13, platelets 43. INR 0.84. Creatinine 0.6. DATA: 1. I discussed with Dr. Salazar, will admit to med/surg. 2. I reviewed his chart, including his old admission for pneumonia in which he left AMA. IMPRESSION AND PLAN: 1. Questionable upper gastrointestinal bleed: No melena, sounds more consistent with epistaxis to tri e. History is rather difficult, however. He has a normal hemoglobin and is hemodynamically stable. I think it is okay to put him empirically on Protonix. Gastroenterology was consulted by the emerge ncy department. 2. Alcohol abuse and withdrawal: He tells me he has had seizures in the past. I placed him on CIWA . He is at risk for severe withdrawal. 3. Suspected liver disease with thrombocytopenia: I have checked LFTs, these are pending currently. I note that his INR is normal. 4. Thrombocytopenia: Suspect that this is due to hepatomegaly and portal hypertension. Will rechec k these tomorrow. I do not think that platelets at this level put him at risk for spontaneous bleedi ng. 5. Tobacco use: Nicotine patch. /[id number]/MODL
[2017-08-02] MEDS: NICOTINE 21 MG/24 HR PATCH TD SCH (22:23)
[2017-08-02] MEDS: LORazepam 2 MG/ML INJ IVP PRN (22:23)
[2017-08-03] MEDS ORDERED: PANTOPRAZOLE SODIUM 40 MG VIAL IVP SCH ×2 (00:08→09:00)
[2017-08-03] MEDS: LORazepam 2 MG/ML INJ IVP PRN ×8 (02:55→15:02)
[2017-08-03 06:42] LABS: PLATELET COUNT 40 10^3/uL (150-400)
[2017-08-03] MEDS ORDERED: PROTOCOL POTASSIUM 1 DOSE MISC PRN (06:42)
[2017-08-03] MEDS: NICOTINE 21 MG/24 HR PATCH TD SCH (08:30)
[2017-08-03] MEDS: THIAMINE HCL 500 MG in NS 500 ML IV SCH (08:55)
[2017-08-03] MEDS ORDERED: POTASSIUM CL 10 MEQ TAB PO ONE ×2 (09:00→22:00)
[2017-08-03] MEDS ORDERED: EPINEPHrine 1 MG/10 ML SYR IVP ONE (09:55)
[2017-08-03] MEDS ORDERED: MIDAZOLAM 2 MG/2 ML VIAL IVP ONE (10:05)
[2017-08-03] MEDS ORDERED: MIDAZOLAM 2 MG/2 ML VIAL ONE (10:06)
--- NOTE | 2017-08-03 10:06 | PDANEPAE ---
ANE Past Medical History - Pulmonary History Hx Oxygen in Use at Home: No Hx Sleep Apnea: No Sleep Apnea Screening Result - Last Documented: Negative - Endocrine History Hx Diabetes: No Hypothyroid: No Hyperthyroid: No Obesity: no - Chronic Pain History Chronic Pain: No ANE Review of Systems Review of Systems: ANE Patient History - Allergies Allergies/Adverse Reactions: No Known Allergies Allergy (Verified 08/02/17 18:07) - Home Medications Home Medications: NK [No Known Home Meds] 08/02/17 [Last Taken Unknown] - NPO status NPO Since - Liquids (Date): 08/03/17 NPO Since - Liquids (Time): 00:00 NPO Since - Solids (Date): 08/03/17 NPO Since - Solids (Time): 00:00 - Smoking Hx Smoking Status: Current every day smoker ANE Labs/Vital Signs - Labs Result Diagrams: 08/03/17 05:53 08/03/17 05:53 - Vital Signs Blood Pressure: 151/84 Heart Rate: 90 Respiratory Rate: 18 O2 Sat (%): 96 Height: 180.34 cm Weight: 75.75 kg ANE Physical Exam - Airway Neck exam: FROM Mallampati Score: Class 1 Mouth exam: poor dentition - Pulmonary Pulmonary: no respiratory distress - Cardiovascular Cardiovascular: regular rate and rhythym - ASA Status ASA Status: III ANE Anesthesia Plan Anesthesia Plan: general endotracheal anesthesia
[2017-08-03] MEDS ORDERED: fentaNYL 250 MCG/5 ML INJ ONE (10:12)
[2017-08-03] MEDS ORDERED: PROPOFOL 200 MG/20 ML VIAL ONE ×2 (10:14→10:23)
--- NOTE | 2017-08-03 10:20 | GCON ---
[f rep st] CONSULTATION CHIEF COMPLAINT: Hematemesis. HISTORY OF PRESENT ILLNESS: I have been asked to see this 32-year-old patient in consultation from Hakeem Diehl for hematemesis and melena. Patient had presented to the emergency department. He does d rink a significant amount of alcohol. He did present to the emergency room intoxicated. He was havin g some withdrawal symptoms. He reported that he had several episodes of emesis that was bright red b lood and episodes of melena. He denies any prior history of GI bleeding. He has been having some up per abdominal pain. Denies any NSAID use and no regular medications. He does drink a significant am ount of vodka, about a half a gallon a day. PAST MEDICAL HISTORY: Questionable history of coronary artery disease. MEDICATIONS: None prior to admission. ALLERGIES: No known drug allergies. SOCIAL HISTORY: He is homeless, lives in a tent, drinks alcohol, and does smoke cigarettes and marij uana. FAMILY HISTORY: A father of some form of cancer. His brother of an MA at 46, and otherwise noncontributory as pertains to chief complaint. REVIEW OF SYSTEMS: Negative for 10 systems other than mentioned in HPI. PHYSICAL EXAMINATION: VITAL SIGNS: 151/84, heart rate 90 respiratory rate 18, 96% saturation on johana m air, 36.6 is his temperature. GENERAL: A disheveled-appearing gentleman in no acute distress but somewhat shaky. Alert and orientated. HEENT: Normocephalic, atraumatic. EOMI. NECK: Supple. No ce rvical adenopathy. No thyromegaly. LUNGS: Clear. CARDIAC: Normal S1, S2 without murmur. ABDOMEN: Benign, soft, mild tenderness to palpation in the left upper quadrant. EXTREMITIES: Without clubb ing, cyanosis or edema. NEUROLOGIC: Grossly nonfocal but he is tremulous. SKIN: Skin is warm, dry, and intact. PSYCHIATRIC: Alert and oriented x3, is somewhat anxious. Otherwise normal affect. LABORATORY DATA: Initial hemoglobin of 13.8 at admission. Serial H and H revealed a drop in hemoglo bin to 12.3, platelet count was low at 40,000. PT was 11.7 with an INR of 0.084. Serum chemistries: Serum sodium 142, potassium 3.5, chloride of 102, CO2 of 26, BUN of 7, creatinine 0.5. Liver functio n tests: AST of 226, ALT of 94, alkaline phosphatase of 104. Alcohol level was 385 on admission. IMPRESSION: 32-year-old alcoholic in withdrawals. Patient with significant liver function test abno rmalities most consistent with alcoholic hepatitis. The patient reports hematemesis, suspect Pastora -Weinstein tear. Rule out significant gastritis, peptic ulcer disease and less likely portal hypertensiv e gastropathy or varices. RECOMMENDATIONS: Serial H and H, IV fluids and hydration. Type and screen for packed red blood cell s. IV Protonix. N.p.o. Proceed with urgent endoscopy. Would recommend right upper quadrant ultrasoun d and withdrawal precautions. Will follow with you. /[id number]/MODL
--- NOTE | 2017-08-03 10:36 | GIREPORT ---
[facility] Surgical Services - Endoscopy Department Patient Name: Dandre Alfonso Procedure Date: 08/03/2017 9:50 AM Patient Type: Inpatient Attending MD/ ER Physician: Milton Warner MD Procedure: Upper GI endoscopy Indications: Hematemesis, Melena Providers: Milton Warner MD Medicines: Sedation Required Anesthesia Staff Assistance Complications: No immediate complications. Description of Procedure: After obtaining informed consent, the endoscope was passed under direct vision. Throughout the procedure, the patient's blood pressure, pulse, and oxygen saturations were monitored continuously. The Endoscope was intro duced through the mouth, and advanced to the second part of duodenum. The [facility] er GI endoscopy was accomplished without difficulty. The patient tolerated th e procedure well. Findings: Non-severe esophagitis with no bleeding was found in the lower third of the esophagus. Biopsies were taken with a cold forceps for histology. Esophagogastric landmarks were identified: the gastroesophageal junctio n was found at 45 cm from the incisors. Diffuse moderate inflammation characterized by congestion (edema) and granularity was found in the entire examined stomach. Biopsies were nikolay en with a cold forceps for histology. The examined duodenum was normal. Estimated Blood Loss: Estimated blood loss: none. Post Op Diagnosis: - Non-severe reflux esophagitis. Biopsied. - Esophagogastric landmarks identified. - Alcoholic gastritis. Biopsied. - Normal examined duodenum. Recommendation: - Await pathology results. - Resume regular diet. - Use Protonix (pantoprazole) 40 mg PO daily. - Will sign off, please call with further questions. - Thank you for allowing me to participate in the care of your patient. Attending Participation: I personally performed the entire procedure. Milton Warner MD Milton Warner MD 08/03/2017 10:36:45 AM This report has been signed electronicallyStmaxime Warner MD Number of Addenda: 0 Note Initiated On: 08/03/2017 9:50 AM [email or web address]
[2017-08-03] MEDS ORDERED: fentaNYL 100 MCG/2 ML INJ IVP PRN (10:53)
[2017-08-03] MEDS ORDERED: NALOXONE HCL 0.4 MG/ML INJ IVP PRN ×2 (10:53→10:58)
[2017-08-03] MEDS ORDERED: PROMETHAZINE HCL 25 MG/ML INJ IVP PRN (10:53)
[2017-08-03] MEDS ORDERED: LABETALOL HCL 5 MG/ML 20 ML MDV IVP PRN (10:58)
[2017-08-03] MEDS ORDERED: LORazepam 2 MG/ML INJ IVP ONE (12:45)
--- NOTE | 2017-08-03 12:50 | HOSPPROG ---
Hospitalist Progress Note Assessment/Plan: Hematemesis - this may have been epistaxis. EGD this am showed reflux esophagitis, gastritis, no e/o bleeding. H&H stable. -cont BID IV PPI -appreciate GI assistance Alcohol intoxication now in severe withdrawal - presented with etoh level of 385 , in severe withdrawal 12 hrs later. Has received 6 mg IV Ativan in past 4 hrs , still very diaphoretic and tremulous. +H/O seizure. -transfer to ICU -cont PRN IV Ativan per protocol, may require precedex -will schedule bzd if he requires precedex -send urine drug screen Abdominal pain - send lipase, ?pancreatitis -BID PPI -IVF's Alcoholic liver disease - mild alcohol induced hepatitis, AST>ALT -trend LFT's Chest pain - pt gives h/o IL. He is diaphoretic, complaining of chest pain. -suspect w/d, but will check EKG and trend trop Thrombocytopenia - 2/2 etoh -follow Full code Dispo - transfer to ICU for severe alcohol withdrawal. 30 minutes crit care. Subjective: Pt very diaphoretic, tremulous, scared. RN reports hallucinations. No fevers. C/O abdominal pain. +h/o seizure several years ago. drinks 1/2 gallon vodka since age 12. no hematemesis or melena here. Objective: Vital Signs Temp Pulse Resp BP Pulse Ox 36.9 C 73 16 142/91 H 95 08/03/17 11:44 08/03/17 11:44 08/03/17 11:44 08/03/17 11:44 08/03/17 11:44 Laboratory Results 08/03/17 05:53 08/03/17 05:53 08/02/17 08/03/17 08/04/17 05:59 05:59 05:59 Intake Total 3420 1000 Output Total 675 450 Balance 2745 550 PT 11.7 SEC (12.0-15.0) L 08/02/17 18:00 INR 0.84 (0.83-1.16) 08/02/17 18:00 - Physical Exam Constitutional: uncomfortable Eyes: PERRL Ears, Nose, Mouth, Throat: moist mucous membranes Cardiovascular: regular rate and rhythym Respiratory: no respiratory distress, clear to auscultation Gastrointestinal: other (soft, nd, +TTP epigastrium, no r/r/g) Skin: warm Musculoskeletal: full muscle strength Neurologic: AAOx3, other (tremulous) Psychiatric: interacting appropriately ICD10 Worksheet Patient Problems: Problems Problem Status Onset GI bleed Acute Thrombocytopenia Acute Alcohol intoxication Acute Contusion of left hand Acute Hypoxia Acute Pneumonia Acute
--- NOTE | 2017-08-03 14:22 | CPEKG ---
Heart Rate: 68 RR Interval: 882 P-R Interval: 140 QRSD Interval: 102 QT Interval: 424 QTC Interval: 451 P [place]: 50 QRS [place]: 81 T Wave [place]: -3 EKG Severity - ABNORMAL ECG - EKG Impression: SINUS RHYTHM EKG Impression: PROBABLE LEFT VENTRICULAR HYPERTROPHY EKG Impression: BORDERLINE T ABNORMALITIES, INFERIOR LEADS EKG Impression: ST ELEV, PROBABLE NORMAL EARLY REPOL PATTERN Electronically Signed By: Paras Hankins 03-Aug-2017 14:57:47
[2017-08-03] MEDS: D5W NS W/ 20 KCl/L 1,000 ML IV SCH (14:40)
[2017-08-03] MEDS: DEXMEDETOMIDINE HCL 400 MCG in NS 100 ML IV SCH ×2 (14:42→21:19)
--- NOTE | 2017-08-03 14:46 | GCON ---
[f rep st] CONSULTATION OPERATIONS REPRESENTATIVE CONSULTATION. REASON FOR ADMISSION: GI bleed. Acute alcohol withdrawals. HISTORY: The patient is a 32-year-old white male who was admitted to the hospital with complaints of possible GI bleed. He has longstanding history of alcoholism for which he drinks about a half parrish n of vodka per day. He was admitted to the floor on 08/02/2017 for possible GI bleed, as well as jaycee pected liver disease with thrombocytopenia. He took a turn for the worse today with worsening alcoho l withdrawals. He was subsequently transferred to the intensive care unit. Currently, he is somewha t sedated, unable to provide any history. All history is gleaned from the medical record. REVIEW OF SYSTEMS: Ten-point review of systems was attempted; however, patient is too sedated to ans wer. PAST MEDICAL HISTORY: Significant for alcoholism. Significant for an IN. FAMILY HISTORY: Noncontributory. SOCIAL HISTORY: He is homeless. He smokes cigarettes, as well as drinks an excess amount of alcohol . He is currently living in a tent. HOME MEDICATIONS: None. PHYSICAL EXAM: VITAL SIGNS: Blood pressure is 138/91, pulse is 73, respirations 18, temperature 37. 5, oxygen saturation 99% on 2 L. GENERAL: He is a well-developed 32-year-old male who is sedated. HEENT eyes are PERRLA, EOMI. Throat shows no erythema or tonsillar hypertrophy. NECK: Supple. No cervical adenopathy. HEART: Regular rate and rhythm without murmurs, rubs, or gallops. LUNGS: Dim inished breath sounds but no wheeze. ABDOMEN: Soft, nontender. Bowel sounds are present in all 4 q uadrants. EXTREMITIES: No clubbing, cyanosis, or edema. LABORATORIES: White count 3.5, hemoglobin 12, hematocrit 36, platelet count is 40. INR 0.84. Sodiu m 142, potassium 3.5, chloride 102, CO2 is 26, BUN 7, creatinine 0.5, glucose is 77. AST is elevated to 26. ALT is elevated at 94. Alcohol level on admission was 385. IMPRESSION: 1. Alcoholism. 2. Acute alcohol withdrawals. 3. Hematemesis. This is felt to be epistasis. 4. Alcoholic liver disease. 5. Thrombocytopenia. RECOMMENDATIONS: 1. Agree with CIWA protocol. 2. DVT and PE prophylaxis. 3. Stress ulcer prophylaxis. 4. Follow H and H closely. 5. Adequate nutrition. 6. Encourage cessation of alcohol. /[id number]/MODL
--- NOTE | 2017-08-03 16:12 | PDMN ---
Medical Necessity Medical necessity: Change to IP, as of 08/03/17, per MD; los >2 mn for ongoing management of severe alcohol withdrawal; admit to ICU for further close monitoring; hx alcoholism, alcoholic liver disease, seizures & HI; per progress note & order 08/03/17
[2017-08-03] MEDS: LORazepam 2 MG/ML INJ IVP SCH ×2 (17:15→23:06)
[2017-08-03] MEDS ORDERED: PANTOPRAZOLE SODIUM 40 MG TAB PO ONE (19:30)
[2017-08-03] MEDS: ACETAMINOPHEN 325 MG TAB PO PRN (19:32)
[2017-08-03] MEDS: PANTOPRAZOLE SODIUM 40 MG TAB PO SCH (21:43)
[2017-08-04] MEDS: LORazepam 2 MG/ML INJ IVP SCH (04:43)
[2017-08-04] MEDS: D5W NS W/ 20 KCl/L 1,000 ML IV SCH ×2 (04:57→16:12)
[2017-08-04] MEDS: DEXMEDETOMIDINE HCL 400 MCG in NS 100 ML IV SCH (04:57)
[2017-08-04 05:16] LABS: PLATELET COUNT 38 10^3/uL (150-400)
[2017-08-04] MEDS ORDERED: POTASSIUM CL 10 MEQ TAB PO ONE (07:26)
[2017-08-04] MEDS ORDERED: PROTOCOL MAGNESIUM 1 DOSE IV PRN (09:04)
--- NOTE | 2017-08-04 09:09 | HOSPPROG ---
Hospitalist Progress Note Assessment/Plan: Hematemesis - this may have been epistaxis. EGD yest showed reflux esophagitis , gastritis, no e/o bleeding. H&H stable. -cont BID PPI Alcohol intoxication now in severe withdrawal - presented with etoh level of 385 , in severe withdrawal 12 hrs later, transferred to ICU, required precedex overnight. CIWA's 12 overnight. +H/O seizure. -d/c precedex -return to prn bzds per CIWA protocol -if remains stable, transfer back to med/surg this afternoon Abdominal pain - lipase normal, denies pain today -BID PPI -IVF's Alcoholic liver disease - mild alcohol induced hepatitis, AST>ALT -trend LFT's -consider RUQ u/s if on the rise Chest pain - pt gives h/o OK. Complained of CP yesterday in throws of w/d, no CP today. -trops neg x2. Thrombocytopenia - 2/2 etoh -follow Full code Dispo - cont inpt, possible transfer back to med/surg today if remains stable off precedex Subjective: Pt quite anxious, fearful. No CP, SOB or abdominal pain. No fevers. Taking some po. Objective: Vital Signs Temp Pulse Resp BP Pulse Ox 36.9 C 66 12 120/79 97 08/04/17 08:00 08/04/17 08:00 08/04/17 08:00 08/04/17 08:00 08/04/17 08:00 Laboratory Results 08/04/17 05:00 08/04/17 05:00 08/03/17 08/04/17 08/05/17 05:59 05:59 05:59 Intake Total 3520 Output Total 3975 Balance -455 PT 11.7 SEC (12.0-15.0) L 08/02/17 18:00 INR 0.84 (0.83-1.16) 08/02/17 18:00 - Physical Exam Constitutional: no apparent distress Eyes: PERRL Ears, Nose, Mouth, Throat: moist mucous membranes Cardiovascular: regular rate and rhythym Respiratory: no respiratory distress, clear to auscultation Gastrointestinal: normoactive bowel sounds, soft, non-tender abdomen Skin: warm Musculoskeletal: full muscle strength Neurologic: AAOx3, other (tremulous) Psychiatric: interacting appropriately ICD10 Worksheet Patient Problems: Problems Problem Status Onset GI bleed Acute Thrombocytopenia Acute Alcohol intoxication Acute Contusion of left hand Acute Hypoxia Acute Pneumonia Acute
[2017-08-04] MEDS: NICOTINE 21 MG/24 HR PATCH TD SCH (09:12)
[2017-08-04] MEDS: THIAMINE HCL 500 MG in NS 500 ML IV SCH (09:12)
[2017-08-04] MEDS: PANTOPRAZOLE SODIUM 40 MG TAB PO SCH ×2 (09:12→21:27)
[2017-08-04] MEDS ORDERED: MAGNESIUM SULF 2 GM/WATER 50 ML IV ONE (09:30)
--- NOTE | 2017-08-04 09:41 | PDINTPN ---
Private Branch Exchange Service Advisor Progress Note Assessment/Plan: Assessment: * Acute alcohol withdrawals-off Precedex as of this morning. * Alcoholism * Hematemesis-resolved * Alcoholic liver disease * Thrombocytopenia Plan: Watch patient closely for the morning after being off Precedex. Likely will be able transfer to floor later today Continue CIWA Subjective: Resting comfortably. Awake and alert. Objective: Vital Signs Temp Pulse Resp BP Pulse Ox 36.9 C 66 12 120/79 97 08/04/17 08:00 08/04/17 08:00 08/04/17 08:00 08/04/17 08:00 08/04/17 08:00 Laboratory Results 08/04/17 05:00 08/04/17 05:00 08/03/17 08/04/17 08/05/17 05:59 05:59 05:59 Intake Total 3520 Output Total 3975 Balance -455 PT 11.7 SEC (12.0-15.0) L 08/02/17 18:00 INR 0.84 (0.83-1.16) 08/02/17 18:00 - Time Spent With Patient Time Spent With Patient: 25 min of time spent with patient, over 1/2 involved with coordination of care or counseling Physical Exam - Physical Exam General Appearance: alert, no apparent distress EENT: PERRL/EOMI, normal ENT inspection Neck: non-tender, full range of motion, supple, normal inspection Respiratory: chest non-tender, lungs clear Cardiac/Chest: normal peripheral pulses, regular rate, rhythm Peripheral Pulses: 2+: carotid (R), carotid (L), femoral (R), femoral (L), dorsalis-pedis (R), dorsalis-pedis (L) Abdomen: normal bowel sounds, non-tender, soft Male Genitalia: deferred Rectal: deferred Skin: normal color, warm/dry Extremities: normal range of motion, non-tender, normal inspection, normal capillary refill Neuro/Psych: alert ICD10 Worksheet Patient Problems: Problems Problem Status Onset GI bleed Acute Thrombocytopenia Acute Alcohol intoxication Acute Contusion of left hand Acute Hypoxia Acute Pneumonia Acute
[2017-08-04] MEDS: LORazepam 2 MG/ML INJ IVP PRN ×6 (09:43→21:33)
--- NOTE | 2017-08-04 13:58 | ASMTCASEMG ---
Living Arrangements What is your living Answers: Alone arrangement? Who do you live with? Type Of Residence What kind of residence do Answers: Homeless you live in? Discharge Plan Comments Coordination Status Comments Notes: Patient is a 32yo , homeless male who was admitted for upper gastrointestinal bleed, alcohol abuse and withdrawal,suspected liver disease, and thrombocytopenia. PT/OT have been ordered. Patient reports living in a tent. Patient may be moved to the floor today. CM will follow. Date Signed: 08/04/2017 01:57 PM Electronically Signed By:Miriam Coto LCSW
[2017-08-04] MEDS: ACETAMINOPHEN 325 MG TAB PO PRN (19:17)
[2017-08-05] MEDS: D5W NS W/ 20 KCl/L 1,000 ML IV SCH (00:11)
[2017-08-05] MEDS: LORazepam 2 MG/ML INJ IVP PRN ×12 (03:35→22:10)
[2017-08-05] MEDS ORDERED: MAGNESIUM SULF 1 GM/DEXTROSE 100 ML IV ONE (05:29)
--- NOTE | 2017-08-05 07:55 | PDINTPN ---
Career Agent Progress Note Assessment/Plan: Assessment: * Acute alcohol withdrawals-off Precedex for 24 hr. Still somewhat tremulous. Improved with benzodiazepines * Alcoholism * Hematemesis-resolved. Stool for occult blood is negative * Alcoholic liver disease * Thrombocytopenia Plan: Watch patient closely for the morning after being off Precedex. Transfer to floor Continue CIWA Subjective: Resting comfortably. Conversant. Still markedly tremulous. Objective: Vital Signs Temp Pulse Resp BP Pulse Ox 37.2 C 87 15 140/96 H 98 08/04/17 16:00 08/05/17 06:00 08/05/17 06:00 08/05/17 06:00 08/05/17 06:00 Laboratory Results 08/05/17 04:50 08/05/17 04:50 08/04/17 08/05/17 08/06/17 05:59 05:59 05:59 Intake Total 3520 4233 Output Total 3975 2750 Balance -455 1483 PT 11.7 SEC (12.0-15.0) L 08/02/17 18:00 INR 0.84 (0.83-1.16) 08/02/17 18:00 Laboratory Results 08/05/17 04:50 08/05/17 04:50 08/05/17 08/04/17 04:50 12:14 Calcium 9.0 mg/dL mg/dL (8.5 - 10.4) Magnesium 1.7 mg/dL mg/dL (1.6 - 2.3) Total Bilirubin 0.8 mg/dL mg/dL (0.1 - 1.4) AST 152 IU/L H IU/L (17 - 59) ALT 76 IU/L H IU/L (21 - 72) Alkaline Phosphatase 128 IU/L H IU/L (38 - 126) Total Protein 7.1 g/dL g/dL (6.3 - 8.2) Albumin 3.8 g/dL g/dL (3.5 - 5.0) Stool Occult Bld Scrn NEGATIVE - Time Spent With Patient Time Spent With Patient: 25 min of time spent with patient, over 1/2 involved with coordination of care or counseling Physical Exam - Physical Exam General Appearance: alert, no apparent distress EENT: PERRL/EOMI, normal ENT inspection Neck: non-tender Respiratory: chest non-tender, lungs clear, normal breath sounds Cardiac/Chest: normal peripheral pulses, regular rate, rhythm Peripheral Pulses: 2+: carotid (R), carotid (L), femoral (R), femoral (L), dorsalis-pedis (R), dorsalis-pedis (L) Abdomen: normal bowel sounds, non-tender, soft Male Genitalia: deferred Skin: normal color, warm/dry Extremities: normal range of motion, non-tender, normal inspection, normal capillary refill Neuro/Psych: alert ICD10 Worksheet Patient Problems: Problems Problem Status Onset GI bleed Acute Thrombocytopenia Acute Alcohol intoxication Acute Contusion of left hand Acute Hypoxia Acute Pneumonia Acute
[2017-08-05] MEDS: NICOTINE 21 MG/24 HR PATCH TD SCH (08:48)
[2017-08-05] MEDS: THIAMINE HCL 100 MG TAB PO SCH (08:50)
[2017-08-05] MEDS: PANTOPRAZOLE SODIUM 40 MG TAB PO SCH ×2 (08:50→19:47)
[2017-08-05] MEDS ORDERED: LORazepam 2 MG/ML INJ IVP PRN (11:38)
--- NOTE | 2017-08-05 11:43 | HOSPPROG ---
Hospitalist Progress Note Assessment/Plan: #ETOH WD -Off Precedex -Still with WD -Will schedule Precedex TID -Ativan PRN #Hematemesis -Etiology likely Epistaxis, occult stool negative -EGD yest showed reflux esophagitis, gastritis, no e/o bleeding. H&H stable. -cont BID Protonix #Abdominal pain - lipase normal, denies pain today -BID PPI Alcoholic liver disease - mild alcohol induced hepatitis, AST>ALT -trend LFT's -consider RUQ u/s if on the rise Chest pain - pt gives h/o MO. -Resolved -trops neg x2. Thrombocytopenia - 2/2 etoh -monitor closely #Hypomagnesemia: replace Mg as needed FEN: Regular diet. Tolerating well. Will stop IVF. DVT Proph: start SCD's Full code Dispo - transfer out of the ICU back to the floor Subjective: still with WD symptoms. Eating well. Awake and alert Objective: Vital Signs Temp Pulse Resp BP Pulse Ox 36.8 C 87 19 137/88 H 95 08/05/17 08:00 08/05/17 08:00 08/05/17 08:00 08/05/17 08:00 08/05/17 08:00 Laboratory Results 08/05/17 04:50 08/05/17 04:50 08/04/17 08/05/17 08/06/17 05:59 05:59 05:59 Intake Total 3520 4233 1220 Output Total 3975 2750 300 Balance -455 1483 920 PT 11.7 SEC (12.0-15.0) L 08/02/17 18:00 INR 0.84 (0.83-1.16) 08/02/17 18:00 - Physical Exam Constitutional: no apparent distress Eyes: PERRL, EOMI Ears, Nose, Mouth, Throat: moist mucous membranes Cardiovascular: regular rate and rhythym, No edema Respiratory: no respiratory distress, no rales or rhonchi, clear to auscultation Gastrointestinal: normoactive bowel sounds, soft, non-tender abdomen Skin: warm Musculoskeletal: full muscle strength Neurologic: AAOx3, other (bilateral hand tremor) Psychiatric: interacting appropriately Lymph, Heme, Immunologic: No petechiae ICD10 Worksheet Patient Problems: Problems Problem Status Onset GI bleed Acute Thrombocytopenia Acute Alcohol intoxication Acute Contusion of left hand Acute Hypoxia Acute Pneumonia Acute
[2017-08-05] MEDS: chlordiazePOXIDE 25 MG CAP PO SCH ×2 (11:56→16:28)
[2017-08-05] MEDS: DEXMEDETOMIDINE HCL 400 MCG in NS 100 ML IV SCH ×2 (19:41→22:48)
[2017-08-06] MEDS ORDERED: ATROPINE SULFATE 1 MG/10 ML SYR ONE (00:03)
[2017-08-06] MEDS: LORazepam 2 MG/ML INJ IVP SCH ×5 (00:04→23:16)
[2017-08-06 06:20] LABS: PLATELET COUNT 83 10^3/uL (150-400)
[2017-08-06] MEDS ORDERED: POTASSIUM Cl (KCl) 100 ML IV SCH (06:30)
[2017-08-06] MEDS: POTASSIUM Cl (KCl) 10 MEQ in NS 100 ML IV SCH ×2 (06:51→08:02)
[2017-08-06] MEDS: NICOTINE 21 MG/24 HR PATCH TD SCH (10:08)
[2017-08-06] MEDS: THIAMINE HCL 100 MG TAB PO SCH (10:10)
[2017-08-06] MEDS: PANTOPRAZOLE SODIUM 40 MG TAB PO SCH (10:10)
--- NOTE | 2017-08-06 11:29 | PDINTPN ---
Shook Machine Operator Progress Note Assessment/Plan: Assessment: * Acute alcohol withdrawals-markedly worsened with the very high CIWA score. Was transferred back from the floor after only 1 hr. Markedly somnolent. * Alcoholism * Hematemesis-resolved. Stool for occult blood is negative * Alcoholic liver disease * Thrombocytopenia Plan: Continue Precedex Continue CIWA VT prophylaxis Stress ulcer prophylaxis Subjective: Markedly somnolent. Objective: Vital Signs Temp Pulse Resp BP Pulse Ox 36.6 C 53 L 14 120/82 H 100 08/06/17 10:00 08/06/17 10:00 08/06/17 10:00 08/06/17 10:00 08/06/17 10:00 Laboratory Results 08/06/17 06:10 08/06/17 05:15 08/05/17 08/06/17 08/07/17 05:59 05:59 05:59 Intake Total 4233 2634 Output Total 2750 1075 Balance 1483 1559 PT 11.7 SEC (12.0-15.0) L 08/02/17 18:00 INR 0.84 (0.83-1.16) 08/02/17 18:00 - Time Spent With Patient Time Spent With Patient: 25 min of time spent with patient, over 1/2 involved with coordination of care or counseling Physical Exam - Physical Exam General Appearance: no apparent distress, No alert EENT: PERRL/EOMI Neck: non-tender, full range of motion, supple, normal inspection Respiratory: chest non-tender, lungs clear, normal breath sounds Cardiac/Chest: normal peripheral pulses, regular rate, rhythm Abdomen: normal bowel sounds, non-tender, soft Male Genitalia: deferred Rectal: deferred Skin: normal color, warm/dry Extremities: normal range of motion, non-tender, normal inspection, normal capillary refill Neuro/Psych: No alert ICD10 Worksheet Patient Problems: Problems Problem Status Onset GI bleed Acute Thrombocytopenia Acute Alcohol intoxication Acute Contusion of left hand Acute Hypoxia Acute Pneumonia Acute
--- NOTE | 2017-08-06 12:25 | HOSPPROG ---
Hospitalist Progress Note Assessment/Plan: #ETOH WD, failed transfer to the medical floor -cont with Precedex -Ativan scheduled -Off Librium -cont CIWA -Change Thiamine to IV #Acute encephalopathy #Bradycardia likely from Precedex -Monitor closely, last few measures have been 60's #Hematemesis -Etiology likely Epistaxis, occult stool negative -EGD showed reflux esophagitis, gastritis, no e/o bleeding. H&H stable. -cont BID Protonix, will change to IV today #Abdominal pain - lipase normal, denies pain today -BID PPI Alcoholic liver disease - mild alcohol induced hepatitis, AST>ALT -trend LFT's -consider RUQ u/s if on the rise Chest pain - pt gives h/o UT. -Resolved -trops neg x2. Thrombocytopenia - 2/2 etoh -monitor closely -Overall stable today #Hypomagnesemia: replace Mg as needed FEN: Regular diet. Not much input given encephalopathy, will give IVF. DVT Proph: start SCD's Full code Dispo - critically ill total critical care time managing this patient with critical ETOH WD requiring Precedex is 35 minutes Subjective: follows limited commands. Confused. Active WD Objective: Vital Signs Temp Pulse Resp BP Pulse Ox 36.6 C 53 L 14 120/82 H 100 08/06/17 10:00 08/06/17 10:00 08/06/17 10:00 08/06/17 10:00 08/06/17 10:00 Laboratory Results 08/06/17 06:10 08/06/17 05:15 08/05/17 08/06/17 08/07/17 05:59 05:59 05:59 Intake Total 4233 2634 Output Total 2750 1075 Balance 1483 1559 PT 11.7 SEC (12.0-15.0) L 08/02/17 18:00 INR 0.84 (0.83-1.16) 08/02/17 18:00 - Physical Exam Constitutional: no apparent distress Eyes: PERRL, EOMI Ears, Nose, Mouth, Throat: moist mucous membranes Cardiovascular: bradycardia, No edema Respiratory: no respiratory distress, no rales or rhonchi, clear to auscultation Gastrointestinal: normoactive bowel sounds, soft, non-tender abdomen Skin: warm Neurologic: No AAOx3 Psychiatric: encephalopathic, No interacting appropriately Lymph, Heme, Immunologic: No petechiae ICD10 Worksheet Patient Problems: Problems Problem Status Onset GI bleed Acute Thrombocytopenia Acute Alcohol intoxication Acute Contusion of left hand Acute Hypoxia Acute Pneumonia Acute
[2017-08-06] MEDS ORDERED: NS W/ 20 KCl/L 1,000 ML IV SCH (12:30)
[2017-08-06] MEDS: DEXMEDETOMIDINE HCL 400 MCG in NS 100 ML IV SCH ×2 (13:25→21:14)
[2017-08-06] MEDS: THIAMINE HCL 500 MG in NS 500 ML IV SCH (13:30)
[2017-08-06] MEDS: PANTOPRAZOLE SODIUM 40 MG VIAL IVP SCH ×2 (16:25→21:14)
[2017-08-07] MEDS: LORazepam 2 MG/ML INJ IVP SCH ×2 (05:23→12:19)
[2017-08-07] MEDS: DEXMEDETOMIDINE HCL 400 MCG in NS 100 ML IV SCH (05:36)
[2017-08-07 05:49] LABS: PLATELET COUNT 109 10^3/uL (150-400)
[2017-08-07] MEDS ORDERED: MAGNESIUM SULF 1 GM/DEXTROSE 100 ML IV ONE (07:37)
[2017-08-07] MEDS: NICOTINE 21 MG/24 HR PATCH TD SCH (08:36)
[2017-08-07] MEDS: THIAMINE HCL 500 MG in NS 500 ML IV SCH (08:36)
[2017-08-07] MEDS: PANTOPRAZOLE SODIUM 40 MG VIAL IVP SCH (08:37)
--- NOTE | 2017-08-07 11:37 | HOSPPROG ---
Hospitalist Progress Note Assessment/Plan: # etOH abuse and w/d - off precedex - resume CIWA - cont thiamine # acute encephalopathy - better today; d/t withdrawal # hematemesis - more likely d/t epistaxis - cont protonix # etOH gastritis, esophagitis - protonix - need to review pathology (currently not working in [facility]) # chest pain, related hx RI - resolved, trops neg - presentation not consistent with ACS # hepatitis, mild - improving # thrombocytopenia - improving # FEN - eating now # dvt ppx - SCDs (no lovenox given epistaxis) Subjective: feels he is doing much better; we discussed etOH cessation Objective: Vital Signs Temp Pulse Resp BP Pulse Ox 36.8 C 54 L 18 119/76 96 08/07/17 08:00 08/07/17 10:00 08/07/17 10:00 08/07/17 10:00 08/07/17 10:00 Laboratory Results 08/07/17 05:25 08/07/17 05:25 08/06/17 08/07/17 08/08/17 05:59 05:59 05:59 Intake Total 2634 3690 Output Total 1075 935 Balance 1559 2755 PT 11.7 SEC (12.0-15.0) L 08/02/17 18:00 INR 0.84 (0.83-1.16) 08/02/17 18:00 chart reviewed discussed with Dr Reyes on ICU rounds EGD reviewed - Physical Exam Constitutional: no apparent distress, appears nourished Cardiovascular: regular rate and rhythym, no murmur, rub, or gallop Respiratory: no respiratory distress, no rales or rhonchi Gastrointestinal: soft, non-tender abdomen, no palpable masses ICD10 Worksheet Patient Problems: Problems Problem Status Onset Pneumonia Acute Hypoxia Acute Alcohol intoxication Acute Contusion of left hand Acute GI bleed Acute Thrombocytopenia Acute
[2017-08-07] MEDS: LORazepam 2 MG/ML INJ IVP PRN ×4 (12:15→21:36)
--- NOTE | 2017-08-07 16:48 | ASMTCMCOM ---
CM Note CM Note Notes: Patient tremulous, cooperative. Reports that he is involved in the [facility]. This CM let him know that I could give him a bus token to get to [facility] and ETOH tx res when it was closer to discharge. He was appreciative of the help. Date Signed: 08/07/2017 04:47 PM Electronically Signed By:Frieda Dumont LCSW
[2017-08-08] MEDS: LORazepam 2 MG/ML INJ IVP PRN ×3 (04:52→20:03)
[2017-08-08] MEDS: PANTOPRAZOLE SODIUM 40 MG TAB PO SCH (08:20)
[2017-08-08] MEDS: NICOTINE 21 MG/24 HR PATCH TD SCH (08:34)
[2017-08-08] MEDS: THIAMINE HCL 100 MG TAB PO SCH (08:35)
--- NOTE | 2017-08-08 09:27 | HOSPPROG ---
Hospitalist Progress Note Assessment/Plan: # etOH abuse and w/d - off precedex - resume CIWA - still receiving some IV ativan - cont thiamine # acute encephalopathy - better today; d/t withdrawal # hematemesis s/p EGD - more likely d/t epistaxis - cont protonix # etOH gastritis, esophagitis - protonix - need to review pathology (currently not working in [facility]) # chest pain, reported hx SC - resolved, trops neg - presentation not consistent with ACS # hepatitis, mild - improving # thrombocytopenia - improving # FEN - eating now # dvt ppx - SCDs (no lovenox given epistaxis) # dispo - 1-2 more days; will go back to [place] to stay with family Subjective: feels much better; still slightly tremulous Objective: Vital Signs Temp Pulse Resp BP Pulse Ox 37 C 76 18 113/73 94 08/08/17 09:24 08/08/17 09:24 08/08/17 09:24 08/08/17 09:24 08/08/17 09:24 Laboratory Results 08/07/17 05:25 08/08/17 04:14 08/07/17 08/08/17 08/09/17 05:59 05:59 05:59 Intake Total 3690 1550 Output Total 935 775 400 Balance 2755 775 -400 PT 11.7 SEC (12.0-15.0) L 08/02/17 18:00 INR 0.84 (0.83-1.16) 08/02/17 18:00 - Physical Exam Constitutional: no apparent distress, appears nourished, other (smiling) Cardiovascular: no murmur, rub, or gallop, systolic murmur Respiratory: no respiratory distress, clear to auscultation Gastrointestinal: soft, non-tender abdomen, no palpable masses ICD10 Worksheet Patient Problems: Problems Problem Status Onset Pneumonia Acute Hypoxia Acute Alcohol intoxication Acute Contusion of left hand Acute GI bleed Acute Thrombocytopenia Acute
[2017-08-08 20:29] VITALS: RESP 16
[2017-08-09 04:34] LABS: PLATELET COUNT 206 10^3/uL (150-400)
[2017-08-09 05:48] VITALS: BP 118/78; PULSE 62; TEMP 98.1; O2SAT 96
[2017-08-09] MEDS: NICOTINE 21 MG/24 HR PATCH TD SCH (08:03)
[2017-08-09] MEDS: THIAMINE HCL 100 MG TAB PO SCH (08:03)
[2017-08-09] MEDS: PANTOPRAZOLE SODIUM 40 MG TAB PO SCH (08:03)
--- NOTE | 2017-08-09 10:21 | GDS ---
[f rep st] DISCHARGE SUMMARY ALL PROCEDURES: EGD on 08/03/2017 showing alcoholic gastritis and nonsevere reflux esophagitis. Thi s was done by Dr. Warner. ALL DIAGNOSES: 1. Alcohol abuse and severe withdrawal. 2. Acute encephalopathy due to withdrawal. 3. Questionable hematemesis, more likely epistaxis, status post esophagogastroduodenoscopy. 4. Alcoholic gastritis. 5. Reflux esophagitis. 6. Chest pain. 7. Mild hepatitis. 8. Thrombocytopenia. HOSPITAL COURSE: 32-year-old man who was admitted with a chief complaint of hematemesis. He additio daniel had epistaxis at the same time. I think more likely epistaxis explains his complaint. Regardl ess, he was seen by GI, underwent upper endoscopy. Notably, his hemoglobin stayed stable throughout his entire hospitalization. It is 14.2 on discharge. Upper endoscopy was notable for alcoholic jorge a ritis. He has been treated with Protonix. Pathology showed focal intestinal metaplasia. He underwent severe alcohol withdrawal requiring ICU care as well as Precedex. This is significantly improved on discharge. He received his last dose of Ativan more than 12 hours prior to his discharg e. He has been homeless. His plan is to go back to live with his parents in [place] on discharge. They ar e buying him a bus ticket. He had alcoholic hepatitis on admission. His LFTs have normalized on discharge. His thrombocytopeni a has also normalized. FOLLOWUP: Will need to establish with a GI doctor in [place] for focal intestinal metaplasia seen on pa thology. BILLING: I spent less than 30 minutes on the day of discharge coordinating care. /[id number]/MODL
== END 2017-08-09 09:30 | disposition home or self-care (01) | DRG 897 ==
LOC: EDUNIT# → F1N 20:35 → F2N 08-03 12:52 → OBSVTOIN 08-03 13:13 → F3E 08-05 15:33 → F2N 08-05 16:36 → F1N 08-07 17:17
PROVIDERS: ADMIT Student in an Organized Health Care Education/Training Program; ATTEND Student in an Organized Health Care Education/Training Program
DX: F10.231 Alcohol dependence with withdrawal delirium (principal); R04.0 Epistaxis; K29.20 Alcoholic gastritis without bleeding; K21.0 Gastro-esophageal reflux disease with esophagitis; R07.9 Chest pain, unspecified; K70.10 Alcoholic hepatitis without ascites; D69.6 Thrombocytopenia, unspecified; F17.210 Nicotine dependence, cigarettes, uncomplicated; F12.90 Cannabis use, unspecified, uncomplicated; I25.2 Old myocardial infarction; Z59.0 Homelessness
CPT/HCPCS: 80307; 92610-GN; 96374; 97161-GP; 97165-GO; 97535-GO; G0378; G0480; J0461; J2060; J2250; J2704; J3010; J3411; J3475; J3480